=== PATIENT | male | born 1965 | race Caucasian/White ===

== ENCOUNTER 2022-12-29 07:32 | Outpatient (CLI) | payer BC, SELFPAY | END 2022-12-29 07:33 | disposition home or self-care (01) | LOC: NFLDREF 12:47 | PROVIDERS: PCP Internal Medicine; Referring Provider Internal Medicine; Visit Provider Internal Medicine | DX: E78.5 Hyperlipidemia, unspecified (principal); I10 Essential (primary) hypertension; E66.9 Obesity, unspecified; Z12.5 Encounter for screening for malignant neoplasm of prostate | CPT/HCPCS: 80053; 80061; 84153 ==

== ENCOUNTER 2023-11-08 08:10 | Outpatient (CLI) | payer BC, SELFPAY ==
--- OUTSIDE RECORDS SUMMARY | 2023-11-08 08:14 | XMS_ITS | Clinical Summary ---
Author Name Unknown Organization [facility] [employer] [employer] [facility] Address [place], [place] [address] Care Team Providers Care Professor Of Theatre Name Role Phone Gerson Jones MD Primary Care Provider [phone] Allergies No known active allergies Medications Medication Sig Dispensed Refills Start Date End Date Status VENTOLIN HFA 90 mcg/actuation inhaler INHALE 2 PUFFS BY MOUTH EVERY 4 HOURS IF NEEDED 18 g 1 08/24/2013 Active montelukast (SINGULAIR) 10 mg tablet Take 1 tablet by mouth at bedtime. 30 tablet 0 03/05/2014 Active fluticasone-salmeterol (ADVAIR DISKUS) 250-50 mcg/Dose diskus inhaler Inhale 1 Puff by mouth 2 times daily. 0 Active aspirin chewable 81 mg chewable tablet Take 1 tablet by mouth once daily with a meal. 90 tablet 0 01/05/2015 Active atorvastatin (LIPITOR) 40 mg tablet Take 1 tablet by mouth at bedtime. 90 tablet 0 01/05/2015 Active lisinopril (PRINIVIL; ZESTRIL) 40 mg tabletIndications:Unsp ecified essential hypertension Take 1/2 tablet by mouth once daily. Take 20 mg (half tab) until follow-up with primary care. 30 tablet 0 01/05/2015 Active CPAPIndications:Obstru ctive sleep apnea (adult) (pediatric) autoCPAP, heated humidifier, mask, headgear, filters and tubing. Pressure: 4-15cm/H2O Length of Need: 99 1 Device 0 03/19/2015 Active DULoxetine (CYMBALTA) 60 mg Delayed-release capsule Take 1 capsule by mouth once daily. 0 06/29/2015 Active Active Problems Problem Noted Date Diagnosed Date CARO 02/2015, AHI-6, REM supine 21 06/29/2015 CVA (cerebral infarction) 01/02/2015 Mixed hyperlipidemia 11/12/2013 Major depressive disorder, r ecurrent episode, in partial or unspecified remission 12/19/2008 Major depressive disorder, recurrent episode, un specified 05/27/2008 Unspecified asthma(493.90) 01/06/2007 Allergic rhinitis, cause unspecified 01/06/2007 Depressive disorder, not elsewhere classified Unspecified essential hypertension 01/06/2007 Immunizations Name Administration Dates Next Due Influenza, IIV3 (Age >=3 years) 07/03/20 12,05/27/2011,07/23/2010,2007,07/31/2006 Influenza, IIV4 07/31/2014 Pneumococcal Poly,23-Valent (Pneumovax) 07/15/2004 Tdap 07/23/2008 Family History Medical History Relation Name Comments Hyperlipidemia Father Hypertension Father Other Grandchild Hypertension Maternal Uncle Heart Disease Mother after 65 Hypertension Mother Other Mother uterine cancer, age 64, had hysterectomy, 2008 Diabetes Paternal Grandfather Hypertension Paternal Grandfather Cancer Paternal Grandmother Good Health Paternal Uncle Alcohol/Drug No Family History Allergies No Family History Anesthesia Problem No Family History Arthritis No Family History Asthma No Family History Blood Disease No Family History Cancer-breast No Family History Cancer-colon No Family History Cancer-prostate No Family History Psychiatric illness No Family History Seizures No Family History Stroke No Family History Thyroid Disease No Family History Relation Name Status Comments Father Alive Grandchild Maternal Uncle Mother Alive Paternal Grandfather Paternal Grandmother Paternal Uncle Social History Tobacco Use Types Packs/Day Years Used Date Smoking Tobacco: Never Smokeless Tobacco: Never Tobacco Cessation:Counseling Given: Yes Alcohol Use Standard Drinks/Week Comments Yes 0 (1 standard drink = 0.6 oz pure alcohol) Rare if any. Last drink October 2014 Sex and Gender Information Value Date Recorded Sex Assigned at Not on file Gender Identity Not on file Sexual Orientation Not on file Obstetrics History Last Filed Vital Signs Vital Sign Reading Time Taken Comments Blood Pressure 124/77 08/13/2015 9:03 AM [employer] Pulse 82 08/13/2015 9:03 AM [employer] Temperature 37.1 ??C (98.7 ??F) 08/13/2015 9:03 AM CS T Respiratory Rate 16 02/04/2015 12:5 0 PM CDT Oxygen Saturation 97% 08/13/2015 9:03 AM [employer] Inhaled Oxygen Concentration - - Weight 122.2 kg (269 lb 4.8 oz) 08/13/2015 9:03 AM [employer] Height 175.3 cm (5' 9) 02/04/2015 12:5 0 PM CDT Body Mass Index 39.77 02/04/2015 12:50 PM CDT Plan of Treatment Health Maintenance Due Date Last Done Comments COVID-19 vaccine series (#1) 1967 HIV for age 15-65 1982 BMI (ht and wt on same day) for age 18+ 1985 Hepatitis C screening for age 18-79 1985 Colonoscopy through age 75 2012 Depression screening for age 12+ 10/28/2016 10/28/2015, 10/07/2015 Zoster (shingles) series for age 50+ (1 of 2) 2017 Tetanus booster 07/23/2018 07/23/2008 Lipids for age 45-75 01/04/2020 01/03/2015, 06/29/2012, 04/08/2011, Additional history exists Influenza for age 50-64 05/26/2023 07/31/20 14, 07/03/2012, 05/27/2011, Additional history exists Pneumococcal series for age 6-64 Aged Out 07/15/2004 No longer eligible based on patient's age to complete this topic Tdap Completed 07/23/2008 Advance Directives Latest Code Status on File Code Status Date Activated Date Inactivated Comments Full Code 01/02/2015 11:25 AM 01/05/2015 3:03 PM Care Teams Professor Of Theatre Relationship Specialty Start Date End Date Gerson Jones MD PCP - General 11/12/13
== END 2023-11-08 08:11 | disposition home or self-care (01) ==
PROVIDERS: PCP Internal Medicine; Visit Provider Internal Medicine
DX: E78.5 Hyperlipidemia, unspecified (principal); R53.1 Weakness; Z13.228 Encounter for screening for other metabolic disorders; Z12.5 Encounter for screening for malignant neoplasm of prostate
CPT/HCPCS: 80053; 80061; G0103

== ENCOUNTER 2023-11-30 12:34 | Outpatient (CLI) | payer BC, SELFPAY ==
[2023-11-30] MEDS: PERFLUTREN LIPID MICROSPHERES 2 ML VIAL IV (13:00)
[2023-11-30 13:32] VITALS: BP 154/88; PULSE 103
--- NOTE | 2023-11-30 13:32 | W.PM.STED ---
Stress Test Note Date Date Seen: 11/30/23 Date of test: 11/30/23 Providers Primary care provider: Gerson Jones Stress test physician: Caitlyn Lopez Stress Test Note Stress test ordered: Stress Echo Indication for test: Weakness, reported dyspnea on exertion Stress test medicine: Definity Results discussion: Resting EKG: Sinus rhythm, 76 beats per minute., J-point elevation noted. Resting blood pressure: 156/111 Stress test: Patient was exercised following standard Gamal protocol on the treadmill. Patient exercised to 6 minutes 11 seconds, requesting to stop due to exercise fatigue/shortness of breath and being beyond goal heart rate. He achieved 7.5 Mets. He had a maximum heart rate of 162 beats per minute which was 116 % of a calculated target heart rate of 139. He had a maximal blood pressure of 200/98 giving him a rate pressure product of 25,600. He had no arrhythmia, no evidence of any diagnostic ischemia on the EKG. He did exhibit some shortness of breath and hypertensive response to exercise but no chest pain. He was not wheezing, did listen while he was exercising. His dyspnea on certainly did not seem uncharacteristic for the level of activity from my perspective. Echo images are pending to couple this for a full formal diagnostic. Impression: Subjectively negative, objectively negative EKG portion of this stress test. Follow up suggested: Await echo images to couple this for a full formal report. Patient was discharged home in stable condition. He will await call back from his ordering physician when test results are available.
== END 2023-11-30 12:35 | disposition home or self-care (01) ==
LOC: STRESS 12:34
PROVIDERS: PCP Internal Medicine; Visit Provider Family Medicine
DX: R53.1 Weakness (principal); R06.09 Other forms of dyspnea
CPT/HCPCS: 93016; 93325; 93351; Q9957

== ENCOUNTER 2025-01-30 08:30 | Outpatient (CLI) | payer BC, SELFPAY | END 2025-01-30 08:31 | disposition home or self-care (01) | LOC: NFLDREF 02-09 18:15 | PROVIDERS: PCP Internal Medicine; Referring Provider Internal Medicine; Visit Provider Internal Medicine | DX: E78.5 Hyperlipidemia, unspecified (principal); I10 Essential (primary) hypertension; Z12.5 Encounter for screening for malignant neoplasm of prostate | CPT/HCPCS: 80053; 80061; G0103 ==